=== PATIENT | female | born 1975 | race Caucasian/White ===

== ENCOUNTER 2018-07-03 11:06 | Emergency (ER) | payer MEDICARE, OTHER, SELFPAY ==
[2018-07-03 11:07] VITALS: BP 140/85; PULSE 78; RESP 19; TEMP 37.1; O2SAT 100; BMI 26.8
--- NOTE | 2018-07-03 11:32 | RAD_ITS ---
STUDY: X-RAY CHEST REASON FOR EXAM: Female, 42 years old. increased heart rate while exercising TECHNIQUE: PA and lateral views of the chest. COMPARISON: None. FINDINGS: Cardiac monitoring leads present. The lungs are clear and expanded. There is no demonstrated pleural abnormality. Normal size heart. Normal mediastinum and sandie. Normal visualized pulmonary arteries. Normal visualized aortic arch and descending thoracic aorta. Mild broad dextroscoliosis. Normal visualized ribs, clavicles, and shoulders. There is no demonstrated abnormality of the visualized soft tissue structures of the upper abdomen. RAD/Chest PA and Lateral IMPRESSION: Normal x-ray examination of the chest. Electronically Signed: Deyanira Han MD at 12:25 EST , Service support ,
--- NOTE | 2018-07-03 11:32 | EKG12_ITS ---
Test Reason : CP Blood Pressure : / mmHG Vent. Rate : 074 BPM Atrial Rate : 074 BPM P-R Int : 132 ms QRS Dur : 090 ms QT Int : 404 ms P-R-T Axes : 069 062 055 degrees QTc Int : 448 ms Normal sinus rhythm Normal ECG Confirmed by BOO KUMAR, ISMAEL ([id number]), web editor GILBERT RODRIGUEZ ([id number]) on 07/07/2018 2:03:23 PM Referred By: GELA Confirmed By:ISMAEL HADDAD MD
--- NOTE | 2018-07-03 11:33 | ED.VISSUMM ---
- ER Visit Summary Date of Service: 07/03/18 Chief Complaint: Chest pain History of Present Illness: The patient is a 42 F who presents with chest pain that began today while exercising. Patient states she was on the elliptical machine when she felt pain in her left upper chest. Patient states she stopped the elliptical machine and went to a seated bicycle machine. Patient states the pain was persistent with that as well. Patient also states she felt like her heart was racing. Patient states the pain is an aching and burning pain. Patient states the pain is been persistent despite stopping exercising. Patient denies any shortness of breath. Patient does admit to some lightheadedness and diaphoresis. Patient denies any cardiac risk factors. Patient does admit to recent travel to [place] 2 weeks ago. Patient states she is on estrogen patch. Physical Examination: Vital signs are stable. Patient is afebrile. Patient is in no acute distress. Oral mucosa is pink and moist. Neck is supple. Trachea is midline. There is no JVD noted. Heart was regular rate and rhythm. Lungs are clear and equal bilateral. Abdomen is soft. Bowel sounds are normal. There is no tenderness. There is no guarding noted. Skin is warm dry. Cranial nerves II through XII are intact. There are no focal motor or sensory deficits noted. The remaining physical exam is within normal limits. Test Results: EKG showed normal sinus rhythm with a rate of 74. There are no acute ST or T wave changes noted. CBC, metabolic profile, d-dimer, and troponin were obtained and were all normal. PA and lateral chest x-ray was obtained and was normal. Emergency Department Course and Treatment: Reevaluation the patient stated she felt like her heart was pounding. Patient was advised of her results. Patient is agreeable for repeat EKG and delta troponin. Repeat EKG and delta troponin were normal. Patient felt better on reevaluation. Patient has a JUSTIN score of 1. Patient has a HEART score of 1. Patient was advised that this is low risk for acute cardiac event. Patient was instructed to follow-up with his primary care physician in 5-7 days. Patient understood and was agreeable with the plan. All questions were answered. Disposition: Discharge home Impression: Chest pain This note was generated with [employer] dictation software. It may contain incorrect words, spelling, and punctuation that were not noted in review of the chart prior to signing ED Disposition - Plan for ED Patient: Disposition: Home or Assisted Living Diagnosis: Chest pain Instructions: ED Chest Pain Atypical Unkn Cause Referrals: Town Doctor,Out of [NON-STAFF] - 3-5 Days
[2018-07-03 11:56] LABS: Absolute Lymphocyte Count 1.67 X10^3/ul (0.83-4.51); Absolute Neutrophil Count 2.3 X10^3/uL (2.0-7.7); Basophil# 0.03 X10^3/uL; Basophil% 0.7 % (0-1); Eosinophil# 0.14 X10^3/uL; Eosinophils% 3.1 % (0-5); Hematocrit 42.4 % (37-47); Hemoglobin 13.4 g/dl (12.0-15.0); Lymphocyte # 1.67 X10^3/ul (4.0); Lymphocyte % 37.3 % (19-41); Mean Corp Hgb Conc 31.6 g/gl (32-36); Mean Corpuscular Hgb 29.6 pg (27.0-32.0); Mean Corpuscular Volume 93.6 fL (81-99); Mean Platelet Vol. 10.9 fl (6.2-12.0); Monocyte# 0.32 X10^3/uL; Monocyte% 7.1 % (0-10); Neutrophil # 2.32 X10^3/uL (2.7-7.7); Neutrophil % 51.8 % (47-70); POSITIVE COUNT NO; POSITIVE DIFFERENTIAL NO; POSITIVE MORPHOLOGY NO; Platelet Count 189 K/mm3 (150-450); RBC Distribution Width CV 13.1 % (11.6-14.6); RBC Distribution Width SD 43.6 fl (35.1-43.9); Red Blood Count 4.53 M/mm3 (4.2-5.4); White Blood Count 4.5 K/mm3 (4.4-11.0)
[2018-07-03 11:59] LABS: Anion Gap 7 (5-15); BUN 13 mg/dL (7-18); BUN/Creat Ratio 14.2 RATIO (10-20); Calcium,Total 8.7 mg/dL (8.5-10.1); Chloride 110 mmol/L (98-107); Creatinine, Serum 0.92 mg/dL (0.55-1.02); EST Glomerular Filtration Rate 71 mL/min (>60); Est Glom Filt Rate - Afr Amer 86 mL/min (>60); Estimated Creatinine Clearance 78.72 ml/min; Glucose 92 mg/dL (74-106); Potassium 3.8 mmol/L (3.5-5.1); Sodium Level 140 mmol/L (136-145)
[2018-07-03 12:04] LABS: D-Dimer Quantitative (DVT/PE) < 0.27 FEU/ug/m (0.27-0.49)
[2018-07-03] MEDS: Aspirin 81 MG TAB.CHEW 324 MG PO (12:04)
[2018-07-03 12:07] VITALS: BP 114/81; PULSE 69; RESP 13; O2SAT 100
--- NOTE | 2018-07-03 12:53 | EKG12_ITS ---
Test Reason : REPEAT EKG Blood Pressure : / mmHG Vent. Rate : 059 BPM Atrial Rate : 059 BPM P-R Int : 136 ms QRS Dur : 084 ms QT Int : 436 ms P-R-T Axes : 072 071 064 degrees QTc Int : 431 ms Sinus bradycardia Otherwise normal ECG Confirmed by BOO KUMAR, ISMAEL ([id number]), tape editor GILBERT RODRIGUEZ ([id number]) on 07/07/2018 2:03:38 PM Referred By: GELA Confirmed By:ISMAEL HADDAD MD
[2018-07-03 13:57] VITALS: BP 115/74; PULSE 53; RESP 14; O2SAT 100
[2018-07-03 14:25] VITALS: BP 115/73; PULSE 63; RESP 21; O2SAT 100
--- NOTE | 2018-07-03 14:56 | EKG12_ITS ---
Test Reason : REPEAT EKG Blood Pressure : / mmHG Vent. Rate : 052 BPM Atrial Rate : 052 BPM P-R Int : 132 ms QRS Dur : 094 ms QT Int : 454 ms P-R-T Axes : 061 065 064 degrees QTc Int : 422 ms Sinus bradycardia Otherwise normal ECG Confirmed by BOO KUMAR, ISMAEL ([id number]), field map editor GILBERT RODRIGUEZ ([id number]) on 07/07/2018 2:03:48 PM Referred By: GELA Confirmed By:ISMAEL HADDAD MD
[2018-07-03 16:04] VITALS: BP 110/74; PULSE 66; PULSE 71; RESP 17; RESP 19; O2SAT 100
== END 2018-07-03 16:29 | disposition home or self-care (01) ==
PROVIDERS: Emergency Provider Emergency Medicine; Family Provider Family Medicine; PCP Family Medicine
DX: R07.9 Chest pain, unspecified (principal); R51 Headache; M54.9 Dorsalgia, unspecified; R30.0 Dysuria; F12.10 Cannabis abuse, uncomplicated
CPT/HCPCS: 71046; 80048; 84484; 85025; 85379; 93005; 99285; A4216

== ENCOUNTER 2018-12-12 14:38 | Emergency (ER) | payer MEDICARE, OTHER, SELFPAY ==
[2018-12-12 14:40] VITALS: BP 124/80; PULSE 85; RESP 16; TEMP 36.7; O2SAT 99; BMI 25.9
[2018-12-12 14:49] VITALS: RESP 16
--- NOTE | 2018-12-12 15:21 | RAD_ITS ---
STUDY: X-RAY - LEFT FOOT CLINICAL: Female, 43 years old. Pain and ulcer of the little toe TECHNIQUE: 3 view(s) of the foot. COMPARISON: None. FINDINGS: Normal talus, calcaneus, and tarsal bones. Normal visualized subtalar, talonavicular, calcaneocuboid, tarsal and tarsometatarsal articulations. Normal metatarsi. Normal metatarsophalangeal joint of the great toe. Normal tibial and fibular sesamoid bones. Normal interphalangeal joint of the great toe. Normal phalanges of the great toe. Normal second through fifth metatarsophalangeal joints. Normal interphalangeal joints and phalanges of the lesser toes. Soft tissue ulceration and swelling of the distal fifth toe. RAD/Foot min 3 Views IMPRESSION: Soft tissue swelling and ulceration of the distal fifth toe without evidence for acute fracture or osteomyelitis Electronically Signed: Pardeep Hernadez MD at 16:48 EDT , Service support ,
--- NOTE | 2018-12-12 15:28 | ED.VISSUMM ---
- ER Visit Summary Date of Service: 12/12/18 Chief Complaint: Left fifth toe ulceration History of Present Illness: The patient is a 43 F who presents with an ulceration to her left fifth toe that occurred 4 days ago. Patient states she was at a concert and had to walk with wet shoes. Patient developed an ulceration after that. Patient states the pain and swelling is gotten worse. Patient states she has been using Epson salts soaks. Patient states these have not been helping. Patient states the pain is getting worse. Patient admits to subjective chills. Patient admits to some nausea but denies any vomiting. Physical Examination: Vital signs are stable. Patient is afebrile. Patient is in no acute distress. Skin is warm and dry. There is a grade 2 ulceration of the dorsal aspect of the left fifth toe. There is some mild surrounding erythema. There is no deformity noted. There is some mild purulent drainage noted. There is some mild tenderness over the distal fifth metatarsal. There is no bony crepitance or step-off. There is good range of motion. Sensation was intact to light touch in all digits. Capillary refill is less than 2 seconds in all digits. There are good pedal pulses noted. Test Results: CBC was normal. X-rays of the right foot were obtained. There is no evidence of osteomyelitis. Emergency Department Course and Treatment: Bacitracin dressing was applied. Patient was given a prescription for Keflex. Patient was instructed to follow-up with her primary care physician in 5 to 7 days. Patient understood and was agreeable with the plan. All questions were answered. Disposition: Discharge home Impression: Ulceration left fifth toe This note was generated with [employer] dictation software. It may contain incorrect words, spelling, and punctuation that were not noted in review of the chart prior to signing ED Disposition - Plan for ED Patient: Disposition: Home or Assisted Living Diagnosis: Open wound of fifth toe of left foot Instructions: Wound Care Prescriptions: Cephalexin [Keflex] 500 mg PO Q6 #40 cap Prescription Printed Referrals: Dennys Aggarwal DO [Primary Care Provider] - 5-7 Days
[2018-12-12 15:50] LABS: Absolute Lymphocyte Count 1.85 X10^3/uL (0.83-4.51); Absolute Neutrophil Count 3.1 X10^3/uL (2.0-7.7); Basophil# 0.03 X10^3/uL; Basophil% 0.5 % (0-1); Eosinophil# 0.14 X10^3/uL; Eosinophils% 2.6 % (0-5); Hematocrit 40.9 % (37-47); Hemoglobin 13.4 g/dL (12.0-15.0); Lymphocyte # 1.85 X10^3/ul (4.0); Lymphocyte % 33.8 % (19-41); Mean Corp Hgb Conc 32.8 g/dL (32-36); Mean Corpuscular Hgb 29.8 pg (27.0-32.0); Mean Corpuscular Volume 91.1 fL (81-99); Mean Platelet Vol. 10.6 fl (6.2-12.0); Monocyte# 0.41 X10^3/uL; Monocyte% 7.5 % (0-10); NRBC Flagged by Analyzer 0 % (0-5); Neutrophil # 3.05 X10^3/uL (2.7-7.7); Neutrophil % 55.6 % (47-70); Platelet Count 187 K/mm3 (150-450); RBC Distribution Width CV 12.3 % (11.6-14.6); RBC Distribution Width SD 41.1 fl (35.1-43.9); Red Blood Count 4.49 M/mm3 (4.2-5.4); White Blood Count 5.5 K/mm3 (4.4-11.0)
[2018-12-12 17:43] VITALS: RESP 18
[2018-12-12] MEDS: BACITRACIN 15 GM Tube 1 APPLIC TOPICAL (17:43)
== END 2018-12-12 17:44 | disposition home or self-care (01) ==
PROVIDERS: Emergency Provider Emergency Medicine; Family Provider Family Medicine; PCP Family Medicine
DX: L97.529 Non-pressure chronic ulcer of other part of left foot with unspecified severity (principal); J45.909 Unspecified asthma, uncomplicated; M32.9 Systemic lupus erythematosus, unspecified
CPT/HCPCS: 36415; 73630; 85025; 99283

== ENCOUNTER 2020-11-19 20:09 | Emergency (ER) | payer MEDICARE, OTHER, SELFPAY ==
[2020-11-19 20:09] VITALS: BP 123/74; PULSE 89; RESP 18; TEMP 36.7; O2SAT 99; BMI 25.8
--- NOTE | 2020-11-19 20:42 | EX.ED.VIS.EY ---
HPI History of Present Illness Chief Complaint: Eye Problem Narrative Narrative: Patient presenting with right eye swelling since earlier today. She states that the swelling has gone down. She showed me a picture of the swelling in her upper eyelid was a little swollen. She was describing this as a stye however there is no stye present on arrival. Patient states that she had drainage and watering. She also complains of headache typical of her migraines. She does have slight blurring of her vision in the right eye which she is unsure was related to her eye pain or her migraine. [facility] Medical History Asthma DVT (deep venous thrombosis) Former smoker GERD (gastroesophageal reflux disease) Kidney stones Lupus (systemic lupus erythematosus) Migraines Rheumatoid arthritis Home Medications diazepam 1 mg PO BID PRN 07/03/18 [History Last Taken Unknown] fluticasone propionate 2 spray NASAL DAILY 07/03/18 [History Last Taken Unknown] gabapentin 800 mg PO TIDCM 07/03/18 [History Last Taken Unknown] hydroxychloroquine [Plaquenil] 200 mg PO DAILY 07/03/18 [History Last Taken Unknown] tizanidine 0.25 mg PO QHS 07/03/18 [History Last Taken Unknown] topiramate [Topamax] 100 mg PO DAILY 07/03/18 [History Last Taken Unknown] albuterol sulfate 2 puff INHALATION Q4H PRN PRN 12/12/18 [History Last Taken Unknown] bupropion HCl 150 mg PO DAILY 12/12/18 [History Last Taken Unknown] buspirone 7.5 mg PO BID 12/12/18 [History Last Taken Unknown] cholecalciferol (vitamin D3) 1,000 unit PO DAILY 12/12/18 [History Last Taken Unknown] ferrous sulfate 325 mg PO QODAY 12/12/18 [History Last Taken Unknown] folic acid 1 mg PO DAILY 12/12/18 [History Last Taken Unknown] lansoprazole 30 mg PO DAILY 12/12/18 [History Last Taken Unknown] magnesium 500 mg PO DAILY 12/12/18 [History Last Taken Unknown] melatonin 2.5 mg PO DAILY 12/12/18 [History Last Taken Unknown] multivitamin with folic acid 1 tab PO DAILY 12/12/18 [History Last Taken Unknown] omega 3-vjs-dts-fish oil 500 mg PO DAILY 12/12/18 [History Last Taken Unknown] rizatriptan 10 mg PO DAILY PRN 12/12/18 [History Last Taken Unknown] vitamin B complex 1 ea PO DAILY 12/12/18 [History Last Taken Unknown] cetirizine [Zyrtec] 10 mg PO DAILY 11/19/20 [History Last Taken Unknown] erythromycin 1 applic EACH EYE TID 5 Days #3.5 g 11/19/20 [Rx Last Taken Unknown] topiramate [Topamax] 50 mg PO QHS 11/19/20 [History Last Taken Unknown] Allergy/AdvReac Type Severity Reaction Status Date / Time latex Allergy Rash Verified 11/19/20 20:13 Iodinated Contrast Media AdvReac Other Verified 11/19/20 20:13 [CONTRASTS] metoclopramide [From Reglan] AdvReac Other Verified 11/19/20 20:13 metronidazole [From Flagyl] AdvReac Other Verified 11/19/20 20:13 ondansetron [From Zofran] AdvReac Other Verified 11/19/20 20:13 promethazine [From Phenergan] AdvReac Other Verified 11/19/20 20:13 Surgical History History of Social History Smoking Status: Never smoker ROS ROS ED Constitutional Constitutional ED: Denies chills or fever(s) Eyes Eyes: Reports blurry vision right ENT ENT ED: Denies rhinorrhea Cardiovascular Cardiovascular: Denies chest pain or palpitations Respiratory/Chest Respiratory/Chest: Denies cough or dyspnea Gastrointestinal Gastrointestinal: Denies abdominal pain, nausea or vomiting Genitourinary Genitourinary ED: Denies dysuria or hematuria Musculoskeletal Musculoskeletal: Denies arthralgias, myalgias or neck pain Integumentary Reports other Details: Right eye swelling EXAM Physical Exam Const Vital Signs: 11/19/20 20:09 Temperature 98.1 F Temperature Source Temporal Pulse Rate 89 Respiratory Rate 18 Blood Pressure 123/74 H Blood Pressure Mean 90 Pulse Ox 99 Oxygen Delivery Method Room Air Positive well nourished HEENT atraumatic Eyes Eyes Narrative: No pain with extraocular motion. General Eye ED: Yes normal appearance of both eyes and normal light reflex Visual Acuity: acuity normal Eyelid: eyelids normal Conjunctiva: conjunctiva normal Sclera: sclera normal Cornea: cornea normal Pupil: PERRL Resp normal respiratory effort and no use of accessory muscles Cardio regular rate and regular rhythm Neuro oriented x3 and CN's II-XII intact bilaterally Sensorium / Orientation: alert Psych Mood & Affect: depressed MDM MDM MDM Narrative Medical decision making narrative: Patient presenting with right eye pain and swelling. Her eyelid was swollen earlier has completely resolved. She has no pain over the right methodist. Her eye pain does not hurt worse with eye movement. She is able to count fingers at the bedside. She does not have any external sign of infection. Patient is sitting in the dark and stating that she is have a headache. I believe that her symptoms are more due to migraine. She does not want me to treat her for migraine as she has migraine type medicine for home. She does request antibiotics for her eye because she is concerned that because she has lupus that she gets really bad infections. I did intake counselor her that I did not find anything wrong with her eye and her symptoms are likely due to migraine. Due to patient's concern I will put her on erythromycin ophthalmic for home. She is given return precautions. Patient stable for discharge. Impression: 1. headache 2. Right eye pain Discharge Plan Triage Chief Complaint: Eye Problem ED Provider: Justo Palafox Dx/Rx/DC Orders Instructions: ED Corneal Abrasion Prescriptions: New erythromycin 5 mg/gram (0.5 %) ointment 1 applic EACH EYE TID 5 Days Qty: 3.5 RF: 0 No Action gabapentin 800 MG tablet 800 mg PO TIDCM RF: 0 diazepam 2 MG tablet 1 mg PO BID PRN RF: 0 hydroxychloroquine [Plaquenil] 200 MG tablet 200 mg PO DAILY RF: 0 fluticasone propionate 1 SPRAY spray,suspension 2 spray NASAL DAILY RF: 0 topiramate [Topamax] 50 MG tablet 100 mg PO DAILY RF: 0 tizanidine 4 MG capsule 0.25 mg PO QHS RF: 0 melatonin 3 MG tablet 2.5 mg PO DAILY RF: 0 ferrous sulfate 325 MG tablet 325 mg PO QODAY RF: 0 lansoprazole 30 MG capsule,delayed release(DR/EC) 30 mg PO DAILY RF: 0 buspirone 7.5 MG tablet 7.5 mg PO BID RF: 0 folic acid 1 MG tablet 1 mg PO DAILY RF: 0 magnesium 250 MG tablet 500 mg PO DAILY RF: 0 albuterol sulfate 90 MCG HFA aerosol inhaler 2 puff inhalation Q4H PRN PRN (Reason: Wheezing) RF: 0 vitamin B complex 1 EACH capsule 1 ea PO DAILY RF: 0 rizatriptan 5 MG tablet 10 mg PO DAILY PRN (Reason: Migraine Symptoms) RF: 0 cholecalciferol (vitamin D3) 1,000 UNIT capsule 1,000 unit PO DAILY RF: 0 bupropion HCl 150 MG tablet extended release 24 hr 150 mg PO DAILY RF: 0 omega 7-vta-czd-fish oil 500 MG capsule,delayed release(DR/EC) 500 mg PO DAILY RF: 0 multivitamin with folic acid 1 TABLET tablet 1 tab PO DAILY RF: 0 cetirizine [Zyrtec] 10 mg Tablet 10 mg PO DAILY RF: 0 topiramate [Topamax] 50 mg Tablet 50 mg PO QHS RF: 0 Primary Care Provider: Dennys Aggarwal Referrals: Dennys Aggarwal DO [Primary Care Provider] - Disposition Disposition: Home, Self Care
[2020-11-19] MEDS: Erythromycin Base 1 OPTH.TUBE 1 APPLIC RIGHT EYE (20:46)
[2020-11-19 20:56] VITALS: BP 124/72; PULSE 89; RESP 16; O2SAT 97
== END 2020-11-19 20:57 | disposition home or self-care (01) ==
LOC: ED 20:49
PROVIDERS: Emergency Provider Student in an Organized Health Care Education/Training Program; PCP Family Medicine
DX: R51.9 Headache, unspecified (principal); H57.11 Ocular pain, right eye; J45.909 Unspecified asthma, uncomplicated; K21.9 Gastro-esophageal reflux disease without esophagitis; M06.9 Rheumatoid arthritis, unspecified; M32.9 Systemic lupus erythematosus, unspecified; Z87.891 Personal history of nicotine dependence; Z79.899 Other long term (current) drug therapy; Z86.718 Personal history of other venous thrombosis and embolism
CPT/HCPCS: 99282